=== PATIENT | female | born 1995 | race Caucasian/White ===

== ENCOUNTER 2021-07-17 17:19 | Day surgery (SDC) | payer BC ==
[2021-07-17 17:45] VITALS: BMI 28.4
[2021-07-17] MEDS ORDERED: hydrALAZINE 20 MG/ML VIAL SLOW IVP PRN (18:09)
[2021-07-17] MEDS ORDERED: Ondansetron HCl/PF 4 MG in Sodium Chloride 0.9% 50 ML IVPB SCH (18:15)
[2021-07-17] MEDS ORDERED: Lactated Ringer's 1,000 ML IV SCH (18:15)
[2021-07-17] MEDS ORDERED: Ondansetron PF 4 MG/2 ML Vial IVP SCH (18:30)
[2021-07-17 18:37] LABS: #Monocytes 0.7 10x3/uL (0.0-1.1); #Neutrophils 10.1 10x3/uL (1.5-8.4); %Basophils 0.2 % (0.0-2.0); %Eosinophils 0.3 % (0.0-6.0); %Lymphocytes 11.2 % (18.0-47.0); %Monocytes 5.5 % (0.0-10.0); %Neutrophils 82.3 % (40.0-75.0); Hemoglobin 11.3 g/dL (12.0-15.5); Mean Corpuscular HGB CONC 35.3 g/dL (32.0-36.0); Mean Corpuscular Hemoglobin 31.5 pg (27.0-33.0); Mean Corpuscular Volume 89.1 fl (81.6-98.3); Mean Platelet Volume 9.8 fl (7.4-10.4); Platelet Count 243 10x3/uL (150-450); RBC Distribution Width 12.9 % (11.5-14.5); Red Blood Cell (RBC) Count 3.59 10x6/uL (3.90-5.03); White Blood Cell (WBC) Count 12.3 10x3/uL (3.5-10.5)
[2021-07-17 18:57] LABS: ALT (SGPT) 16 U/L (8-55); AST (SGOT) 15 U/L (5-34); Albumin 3.5 g/dL (3.5-5.0); Alkaline Phosphatase 63 U/L (40-110); Anion Gap 13 mmol/L (10-20); BUN (Urea Nitrogen) 7 mg/dL (7.0-18.7); Bilirubin, Total 0.4 mg/dL (0.2-1.2); Calc. Creatinine Clearance 172 mL/min (70-130); Calcium 8.9 mg/dL (7.8-10.44); Carbon Dioxide 23 mmol/L (22-29); Chloride 103 mmol/L (98-107); Globulin 2.7 g/dL (2.4-3.5); Glucose 98 mg/dL (70-105); Potassium 4.1 mmol/L (3.5-5.1); Protein, Total 6.2 g/dL (6.0-8.3); Sodium 135 mmol/L (136-145)
[2021-07-17 20:06] LABS: Bilirubin Neg (Negative); Blood, Urine Negative (Negative); Clarity Clear (Clear); Glucose, Urine (Dipstick) Normal (Negative); Ketone, Urine Negative (Negative); Leukocyte 500 (Negative); Nitrite Negative (Negative); Protein, Urine (Dipstick) Negative (Neg-Trace); Specific Gravity, Urine 1.005 (1.002-1.036); Urobilinogen Normal mg/dL (Less than 2)
[2021-07-17 20:15] LABS: Bacteria/HPF 3+ HPF (None Seen); Mucous/LPF 1+ LPF (<2+); RBC/HPF None Seen HPF (0-3); Squamous Epithelial 0-3 HPF (0-3); WBC/HPF 0-3 HPF (0-3)
== END 2021-07-17 20:36 | disposition home or self-care (01) ==
LOC: CSHLD/OP 17:19
PROVIDERS: ATTEND Obstetrics & Gynecology
DX: O99.891 Other specified diseases and conditions complicating pregnancy (principal); R10.30 Lower abdominal pain, unspecified; O21.2 Late vomiting of pregnancy; O32.1XX0 Maternal care for breech presentation, not applicable or unspecified; Z3A.24 24 weeks gestation of pregnancy; Z79.899 Other long term (current) drug therapy
CPT/HCPCS: 36415; 76815; 80053; 81003; 81015; 85025; 87086

== ENCOUNTER 2021-10-19 01:16 | Day surgery (SDC) | payer BC ==
[2021-10-19 01:53] VITALS: BMI 29.7
[2021-10-19] MEDS ORDERED: hydrALAZINE 20 MG/ML VIAL SLOW IVP PRN (04:45)
[2021-10-19 05:28] LABS: Bilirubin Neg (Negative); Blood, Urine 250 (Negative); Clarity Clear (Clear); Glucose, Urine (Dipstick) Normal (Negative); Ketone, Urine Negative (Negative); Leukocyte 500 (Negative); Nitrite Negative (Negative); Protein, Urine (Dipstick) 15 mg/dl (Neg-Trace); Urobilinogen Normal mg/dL (Less than 2)
[2021-10-19 05:53] LABS: Bacteria/HPF Rare-Few HPF (None Seen); Squamous Epithelial None Seen HPF (0-3)
== END 2021-10-19 06:09 | disposition home or self-care (01) ==
LOC: CSHLD/OP 01:16
PROVIDERS: ATTEND Student in an Organized Health Care Education/Training Program
DX: O47.1 False labor at or after 37 completed weeks of gestation (principal); O26.893 Other specified pregnancy related conditions, third trimester; N89.8 Other specified noninflammatory disorders of vagina; Z3A.38 38 weeks gestation of pregnancy
CPT/HCPCS: 81001; 87086; 99283

== ENCOUNTER 2021-10-25 10:34 | Outpatient (CLI) | payer BC | END 2021-10-25 10:35 | disposition home or self-care (01) | LOC: CSHLAB 10:34 | PROVIDERS: ATTEND Student in an Organized Health Care Education/Training Program | DX: Z20.822 Contact with and (suspected) exposure to COVID-19 (principal) | CPT/HCPCS: 87811 ==

== ENCOUNTER 2021-10-29 05:30 | Inpatient (IN) | payer BC ==
[2021-10-29 08:08] VITALS: BMI 29.2
[2021-10-29] MEDS ORDERED: Carboprost 250 MCG/ML AMP IM PRN (08:40)
[2021-10-29] MEDS ORDERED: Ibuprofen 800 MG TAB PO PRN (08:40)
[2021-10-29] MEDS ORDERED: Promethazine HCl 25 MG/ML VIAL IM PRN ×2 (08:40→10:36)
[2021-10-29] MEDS ORDERED: HYDROcodone/Acetaminophen 5/325 mg Tablet PO PRN (08:40)
[2021-10-29] MEDS ORDERED: hydrALAZINE 20 MG/ML VIAL SLOW IVP PRN (08:40)
[2021-10-29] MEDS ORDERED: Butorphanol Tartrate 1 MG/ML VIAL SLOW IVP PRN (08:40)
[2021-10-29] MEDS ORDERED: Misoprostol 200 MCG TAB PR PRN (08:40)
[2021-10-29] MEDS ORDERED: Lidocaine 1% (PF) 30 ML VIAL SC PRN (08:40)
[2021-10-29] MEDS ORDERED: Methylergonovine 0.2 MG/ML VIAL IM PRN (08:40)
[2021-10-29] MEDS ORDERED: Acetaminophen 500 MG TAB PO PRN (08:40)
[2021-10-29] MEDS ORDERED: Ondansetron PF 4 MG/2 ML Vial IVP PRN ×2 (08:40→10:36)
[2021-10-29] MEDS ORDERED: Diphenoxylate HCl/Atropine Tablet PO PRN (08:40)
[2021-10-29] MEDS ORDERED: NS w/ Oxytocin 30 units 500 ML IV SCH ×2 (08:45)
[2021-10-29 08:57] LABS: Hemoglobin 7.2 g/dL (12.0-15.5); Mean Corpuscular HGB CONC 33.8 g/dL (32.0-36.0); Mean Corpuscular Hemoglobin 30.3 pg (27.0-33.0); Mean Corpuscular Volume 89.5 fl (81.6-98.3); Mean Platelet Volume 10.6 fl (7.4-10.4); Platelet Count 153 10x3/uL (150-450); RBC Distribution Width 13.2 % (11.5-14.5); Red Blood Cell (RBC) Count 2.38 10x6/uL (3.90-5.03)
[2021-10-29] MEDS ORDERED: NS w/ Oxytocin 30 units 500 ML ONE (09:02)
[2021-10-29] MEDS ORDERED: Fentanyl 2 mcg/Bup 0.1% Cadd 100 ML ONE (09:04)
[2021-10-29 09:24] LABS: Syphilis Antibody Nonreactive (Nonreactive); Syphilis Antibody Index 0.33 S/CO (<1.00 Non-Reactive)
[2021-10-29] MEDS: Lactated Ringer's 1,000 ML IV SCH (10:31)
[2021-10-29] MEDS ORDERED: Naloxone HCl 0.4 mg/ml Vial IVP PRN ×2 (10:36)
[2021-10-29] MEDS ORDERED: ePHEDrine Sulfate 50 MG/10 ML VIAL SLOW IVP PRN (10:36)
[2021-10-29] MEDS ORDERED: Moisturizing Cream (Eucerin) 113 GM JAR TOP PRN (10:36)
[2021-10-29] MEDS ORDERED: Lactated Ringer's 500 ML IV PRN (10:36)
[2021-10-29] MEDS ORDERED: diphenhydrAMINE 50 MG/ML VIAL IVP PRN (10:36)
[2021-10-29] MEDS ORDERED: Acetaminophen 325 MG TAB PO PRN (10:36)
[2021-10-29] MEDS ORDERED: Communication Order-Pharmacy FS SCH (10:45)
[2021-10-29] MEDS ORDERED: Fentanyl 2 mcg/Bupivacaine 0.1% Cassette 100 ML EPIDURAL SCH (10:45)
[2021-10-29 12:14] LABS: Hep B Surf Ag Non-Reactive S/CO (NonReactive)
[2021-10-29 13:24] LABS: HBSAg Index 0.22 S/CO (0-0.99)
[2021-10-30] MEDS ORDERED: Boostrix 0.5 ML (Tdap) VIAL IM ONE (00:27)
[2021-10-30] MEDS ORDERED: Preparation H Ointment 28 GM TUBE PR PRN (00:27)
[2021-10-30] MEDS ORDERED: Benzocaine-Menthol 82.5 ML CAN TOP PRN (00:27)
[2021-10-30] MEDS ORDERED: Bisacodyl 10 MG SUPP PR PRN (00:27)
[2021-10-30] MEDS ORDERED: diphenhydrAMINE 25 MG CAP PO PRN (00:27)
[2021-10-30] MEDS ORDERED: Promethazine HCl 25 MG/ML VIAL IM PRN (00:27)
[2021-10-30] MEDS ORDERED: hydrALAZINE 20 MG/ML VIAL SLOW IVP PRN (00:27)
[2021-10-30] MEDS ORDERED: HYDROcodone/Acetaminophen 5/325 mg Tablet PO PRN (00:27)
[2021-10-30] MEDS ORDERED: Ondansetron PF 4 MG/2 ML Vial IVP PRN (00:27)
[2021-10-30] MEDS ORDERED: Milk Of Magnesia 30 ML UDCUP PO PRN (00:27)
[2021-10-30] MEDS ORDERED: Lanolin Ointment 7 GM TUBE TOP PRN (00:27)
[2021-10-30] MEDS: Ibuprofen 800 MG TAB PO SCH ×3 (01:04→16:06)
[2021-10-30] MEDS: Lactated Ringer's 1,000 ML IV SCH (01:10)
[2021-10-30 05:05] LABS: Hemoglobin 10.1 g/dL (12.0-15.5)
[2021-10-30] MEDS: Ferrous Sulfate 325 MG TAB PO SCH ×2 (07:08→17:44)
[2021-10-30] MEDS: Docusate 100 MG CAP PO SCH ×2 (08:57→21:16)
[2021-10-30] MEDS: Prenatal Vitamin 1 TAB PO SCH (08:57)
[2021-10-30] MEDS: HYDROcodone/Acetaminophen 5/325 mg Tablet PO PRN (16:57)
[2021-10-31] MEDS: Ibuprofen 800 MG TAB PO SCH ×2 (00:40→08:42)
[2021-10-31] MEDS: HYDROcodone/Acetaminophen 5/325 mg Tablet PO PRN (07:05)
[2021-10-31] MEDS: Ferrous Sulfate 325 MG TAB PO SCH (07:12)
[2021-10-31 07:49] VITALS: BP 113/65; TEMP 98.8
[2021-10-31] MEDS: Docusate 100 MG CAP PO SCH (08:42)
[2021-10-31] MEDS: Prenatal Vitamin 1 TAB PO SCH (08:42)
== END 2021-10-31 12:30 | disposition home or self-care (01) | DRG 807 ==
LOC: CSHLD 07:21 → CSHPP 23:58
PROVIDERS: ADMIT Student in an Organized Health Care Education/Training Program; ATTEND Student in an Organized Health Care Education/Training Program
PROC: 10E0XZZ Delivery of Products of Conception, External Approach (ICD-10-PCS; principal; 2021-10-29)
PROC: 10907ZC Drainage of Amniotic Fluid, Therapeutic from Products of Conception, Via Natural or Artificial Opening (ICD-10-PCS; 2021-10-29)
PROC: 0KQM0ZZ Repair Perineum Muscle, Open Approach (ICD-10-PCS; 2021-10-29)
DX: O99.344 Other mental disorders complicating childbirth (principal); Z37.0 Single live birth; O70.1 Second degree perineal laceration during delivery; Z3A.40 40 weeks gestation of pregnancy; Z88.5 Allergy status to narcotic agent; F41.9 Anxiety disorder, unspecified
CPT/HCPCS: 36415; 51701; 51702; 85014; 85018; 85027; 86780; 86850; 86900; 86901; 87340; J2405; J2590; J7120